=== PATIENT | male | born 1965 | race Caucasian/White ===

== ENCOUNTER 2022-08-16 19:58 | Emergency (ER) | payer SELFPAY ==
[2022-08-16] MEDS ORDERED: Boostrix 0.5 ML (Tdap) VIAL (>/=7 yrs of age) ONE (20:23)
== END 2022-08-16 21:05 | disposition home or self-care (01) ==
LOC: ERS 19:58
DX: S61.012A Laceration without foreign body of left thumb without damage to nail, initial encounter (principal); S61.211A Laceration without foreign body of left index finger without damage to nail, initial encounter; F17.210 Nicotine dependence, cigarettes, uncomplicated; W27.3XXA Contact with needle (sewing), initial encounter
CPT/HCPCS: 12001; 90715